=== PATIENT | female | born 2000 | race Two or more races ===

== ENCOUNTER 2022-04-06 22:23 | Emergency (ER) | payer OTHER ==
[~2022-04-06] VITALS: Ht 167.6 cm; Wt 91.0 kg
[2022-04-06 22:33] VITALS: BP 130/85
[2022-04-06] MEDS ORDERED: METHYLPREDNISOLONE SOD SUCC 125 MG/2 ML VIAL IM ONE (23:30)
[2022-04-06] MEDS ORDERED: ALBUTEROL (0.083%) 2.5MG/3ML NEB HHN ONE (23:30)
[2022-04-06] MEDS ORDERED: IPRATROPIUM BROMIDE (0.02%) 0.5MG/2.5ML NEB HHN ONE (23:30)
== END 2022-04-07 02:15 | disposition left against medical advice (07) ==
LOC: ER 22:23
DX: J45.901 Unspecified asthma with (acute) exacerbation (principal)
CPT/HCPCS: 99281